=== PATIENT | male | born 1995 | race African-American/Black ===

== ENCOUNTER 2018-03-02 19:32 | Emergency (ER) | payer SELFPAY ==
[~2018-03-02] VITALS: Ht 172.7 cm; Wt 58.0 kg
[2018-03-02] MEDS ORDERED: MORPHINE SULFATE 10 MG/ML CPJ ONE (19:43)
[2018-03-02] MEDS ORDERED: ONDANSETRON HCL 4MG TABLET ONE (19:45)
[2018-03-02] MEDS ORDERED: MORPHINE SULFATE 4 MG/ML CPJ (NOT FOR IM USE) IV STA (19:49)
[2018-03-02] MEDS ORDERED: ONDANSETRON HCL 4MG/2ML VIAL IV STA (19:49)
[2018-03-02] MEDS ORDERED: SODIUM CHLORIDE 0.9% 1,000 ML IV ONE (19:49)
[2018-03-02] MEDS ORDERED: METOCLOPRAMIDE HCL 10MG/2ML VIAL ONE (19:58)
[2018-03-02] MEDS ORDERED: METOCLOPRAMIDE HCL 10MG/2ML VIAL IV ONE (20:00)
[2018-03-02 20:06] LABS: BASOPHILS % 1.2 % (0.0-2.0); EOSINOPHILS % 4.8 % (0.0-5.0); HEMATOCRIT. 44.4 % (42.0-52.0); HEMOGLOBIN. 14.9 g/dL (14.0-18.0); LYMPHOCYTES % 31.8 % (20.0-50.0); MEAN CORPUSCULAR VOLUME 86.2 fL (80.0-94.0); MEAN PLATELET VOLUME 7.8 fl (7.4-10.4); MONOCYTES % 6.5 % (2.0-8.0); NEUTROPHILS % 55.7 % (40.0-76.0); PLATELET 240 x1000/uL (130-400); RED BLOOD CELL COUNT 5.15 mill/uL (4.7-6.1); RED CELL DISTRIBUTION WIDTH 12.5 % (11.6-14.6)
[2018-03-02 20:10] LABS: CHLORIDE 102 mEq/L (98-107)
[2018-03-02 20:12] LABS: INR 1.2; PARTIAL THROMBOPLASTIN TIME 26.9 sec (23.4-31.0); PROTHROMBIN TIME 12.3 sec (9.4-11.6)
[2018-03-02 20:14] LABS: ETHANOL BLOOD 27 mg/dL
[2018-03-02] MEDS ORDERED: MIDAZOLAM HCL 2 MG/2 ML VIAL IV ONE (20:30)
[2018-03-02] MEDS ORDERED: IOHEXOL-350 100 ML BOTTLE ONE (21:10)
[2018-03-03 00:09] VITALS: BP 146/78
== END 2018-03-03 00:19 | disposition short-term general hospital (02) ==
LOC: ER 19:53
DX: S42.202B Unspecified fracture of upper end of left humerus, initial encounter for open fracture (principal); X95.9XXA Assault by unspecified firearm discharge, initial encounter; R03.0 Elevated blood-pressure reading, without diagnosis of hypertension; Y93.9 Activity, unspecified; Y92.410 Unspecified street and highway as the place of occurrence of the external cause
CPT/HCPCS: 36415; 71045; 73060; 73206; 80048; 85025; 85610; 85730; 96374; 96375; 99291; G0482; J2250; J2270; J2765; J7030; Q0162; Q9967